=== PATIENT | male | born 1985 | race Caucasian/White ===

== ENCOUNTER 2018-11-01 03:27 | Emergency (ER) | payer BC, OTHER ==
[2018-11-01] MEDS ORDERED: Sodium Chloride 0.9% 10 ML Syringe FLUSH PRN (03:33)
[2018-11-01] MEDS ORDERED: Sodium Chloride 0.9% 2.5 ML Syringe FLUSH PRN (03:33)
[2018-11-01] MEDS ORDERED: Diphtheria,Pertussis(Acell),Tetanus Vaccine 0.5 ML Syringe IM ONE (03:34)
[2018-11-01] MEDS ORDERED: Sodium Chloride 0.9% 1,000 ML IV ONE ×2 (03:34→04:49)
[2018-11-01] MEDS ORDERED: Ondansetron 4 MG/2 ML SDV IVPUSH ONE (03:43)
[2018-11-01] MEDS ORDERED: Bacitracin Oint 1 GM U/D Packet TOP ONE (03:50)
[2018-11-01] MEDS ORDERED: Bacitracin Oint 1 GM U/D Packet ONE (03:51)
--- NOTE | 2018-11-01 03:52 | EDM.PDOC ---
ED HPI GENERAL MEDICAL PROBLEM - General Chief Complaint: Syncope Stated Complaint: CUT ON LEFT HAND PT PASSED OUT Time Seen by Provider: 11/01/18 03:35 - History of Present Illness INITIAL COMMENTS - FREE TEXT/NARRATIVE: HISTORY AND PHYSICAL: History of present illness: The patient is a healthy 33-year-old male with no significant past medical history who presents after having a syncopal event at home. The patient said that earlier today he had a normal day without any systemic issues such as fever chills upper respiratory symptoms nausea vomiting or diarrhea. He did say that he cut the palm of his left hand earlier and a friend sutured it at his home and he has had some small amount of pain at the area but no drainage or redness. The patient said he went to sleep and woke up and went to the bathroom to urinate and he was urinating and the next thing he recalls is being on the floor and having his significant other standing over him. He says he is not sure how he passed out and did not feel dizzy or lightheaded prior to the event. He says that currently he has pain to the back of his head and neck but he has no back pain no rib pain no chest pain or shortness of breath no abdominal pain and no extremity complaints as a result of the fall. He says he is a little soreness at his right elbow but the bone does not hurt him. He says that he did drink alcohol this evening but did drink a lot of fluids throughout the day. He is currently nauseated which waxes and wanes since this event and he has not vomited or had diarrhea. He's had no recent fevers or chills. The patient says that he has not had any urinary symptoms such as dysuria frequency or hematuria and currently has no flank pain or suprapubic pain. The patient came in through triage and arrived via private car. Review of systems: As per history of present illness and below otherwise all systems reviewed and negative. Past medical history: As per history of present illness and as reviewed below otherwise noncontributory. Surgical history: As per history of present illness and as reviewed below otherwise noncontributory. Social history: No reported history of drug or alcohol abuse. Family history: As per history of present illness and as reviewed below otherwise noncontributory. Physical exam: General: Well-developed well-nourished man who is nontoxic and ambulated steadily into the ED. C-collar was immediately placed after triage. Vital signs are noted by me. He speaking clearly and easily without distress HEENT: Atraumatic on palpation and visual expansion without any soft tissue injury bruises abrasions ecchymosis defects or deformities in the scalp or skull , normocephalic, pupils reactive, negative for conjunctival pallor or scleral icterus, mucous membranes moist, throat clear, neck supple, nontender, trachea midline. There is no soft tissue swelling of the facial bones and no palpable bony deformities, teeth and bite are normal, TMs are normal bilaterally without any Zaragoza sign, there is no nasal bleeding appreciated. There are no midline step-offs tenderness or defects of the cervical spine but there is diffuse paraspinal tenderness across the upper neck and the c-collar was placed Lungs: Clear to auscultation, breath sounds equal bilaterally, chest nontender. There is no soft tissue injury such as ecchymosis abrasion or soft tissue swelling Heart: S1S2, regular, negative for clicks, rubs, or JVD. Abdomen: Soft, nondistended, nontender. Negative for masses or hepatosplenomegaly. Negative for costovertebral tenderness. Pelvis: Stable nontender. Genitourinary: Deferred. Rectal: Deferred. Extremities: Atraumatic, with full range of motion of all extremities. There is no evidence of soft tissue swelling ecchymosis erythema or bony defect at the right elbow with the patient had said he had some discomfort. The legs are negative for cords or calf pain. Neurovascular unremarkable. At the left palm of the hand there is centimeter laceration seen near the thenar eminence which has [address] and there is no soft tissue swelling ecchymosis drainage or erythema appreciated. Has full range of motion of the hand and wrist. Neuro: Awake, alert, oriented. Cranial nerves II through XII unremarkable. Cerebellum unremarkable. Motor and sensory unremarkable throughout. Exam nonfocal. Back: There are no midline step-offs tenderness defects of the thoracic or lumbar spine no posterior rib or posterior pelvis tenderness and no soft tissue ecchymosis abrasion or erythema is appreciated Diagnostics: EKG orthostatic vitals CBC CMP troponin TSH alcohol level UA UDS chest x-ray CT scan of the head and C-spine Therapeutics: IV O2 monitor IV fluids Zofran cleansing of wounds, Tdap, cleansing of hand laceration with bacitracin Toradol I discussed with the patient that going forward when he has lacerations he should come to the ED to have them repaired in a sterile fashion but as this wound has been closed and looks clean and dry we would leave the sutures that were placed by his friend intact and he would need to continue to monitor for signs of infection. With the patient's orthostatic vitals he did not have any significant change in blood pressure or pulse but he was symptomatic feeling dizzy with the position change. I discussed with the patient and significant other TESTING results and have offered observation admission which she declines. He would rather go home and rest and follow-up with primary care. I will give him a prescription for Zofran and have advised him about concussion symptoms and reasons to return to the ED. I will also give him a dose of Toradol prior to leaving as he says he feels very achy Impression: Micturition syncope with closed head injury and concussion Definitive disposition and diagnosis as appropriate pending reevaluation and review of above. left hand Pain Score (Numeric/FACES): 5 - Related Data Allergies Allergy/AdvReac Type Severity Reaction Status Date / Time No Known Allergies Allergy Verified 11/01/18 03:33 Home Meds: Home Meds . [No Known Home Meds] 11/01/18 [History] Past Medical History HEENT History: Reports: None Cardiovascular History: Reports: None Respiratory History: Reports: None Gastrointestinal History: Reports: None Genitourinary History: Reports: None Other Musculoskeletal History: fracture to right arm and left clavical per pt Neurological History: Reports: None Psychiatric History: Reports: None Endocrine/Metabolic History: Reports: None Hematologic History: Reports: None Immunologic History: Reports: None Oncologic (Cancer) History: Reports: None Dermatologic History: Reports: None - Infectious Disease History Infectious Disease History: Reports: Chicken Pox Social & Family History - Family History Family Medical History: Noncontributory - Tobacco Use Smoking Status *Q: Never Smoker - Recreational Drug Use Recreational Drug Use: No ED ROS GENERAL - Review of Systems Review Of Systems: ROS reveals no pertinent complaints other than HPI. ED EXAM, GENERAL - Physical Exam Exam: See Below (see dictation) Course - Vital Signs Last Recorded V/S: Last Vital Signs Temp 36.1 C 11/01/18 03:35 Pulse 70 11/01/18 03:35 Resp 18 11/01/18 03:35 BP 113/73 11/01/18 03:35 Pulse Ox 96 11/01/18 03:35 Orthostatic Blood Pressure [ 118/78 Standing] Orthostatic Blood Pressure [ 113/73 Sitting] Orthostatic Blood Pressure [ 115/70 Supine] - Orders/Labs/Meds Orders: Active Orders 24 hr Category Date Time Status Blood Glucose Check, Bedside [RC] ONETIME Care 11/01/18 03:33 Active Cardiac Monitoring [RC] . DIRECTED Care 11/01/18 03:33 Active EKG Documentation Completion [RC] STAT Care 11/01/18 03:33 Active Orthostatic Vital Signs [RC] ASDIRECTED Care 11/01/18 03:33 Active Oxygen Therapy, ED [RC] ASDIRECTED Care 11/01/18 03:33 Active Pulse Oximetry [RC] ASDIRECTED Care 11/01/18 03:33 Active Vaccines to be Administered [RC] PER UNIT ROUTINE Care 11/01/18 03:34 Active Ketorolac [Toradol] Med 11/01/18 05:52 Once 30 mg IVPUSH ONETIME ONE Sodium Chloride 0.9% [Saline Flush] Med 11/01/18 03:33 Active 10 ml FLUSH ASDIRECTED PRN Sodium Chloride 0.9% [Saline Flush] Med 11/01/18 03:33 Active 2.5 ml FLUSH ASDIRECTED PRN Saline Lock Insert [OM.PC] Stat Oth 11/01/18 03:33 Ordered Medication Orders Sodium Chloride (Saline Flush) 10 ml FLUSH ASDIRECTED PRN PRN Reason: Keep Vein Open Sodium Chloride (Saline Flush) 2.5 ml FLUSH ASDIRECTED PRN PRN Reason: Keep Vein Open Labs: Laboratory Tests 11/01/18 11/01/18 11/01/18 Range/Units 03:45 03:45 03:48 WBC 6.96 (4.0-11.0) K/uL RBC 4.52 (4.50-5.90) M/uL Hgb 13.7 (13.0-17.0) g/dL Hct 39.6 (38.0-50.0) % MCV 87.6 (80.0-98.0) fL MCH 30.3 (27.0-32.0) pg MCHC 34.6 (31.0-37.0) g/dL RDW Std Deviation 40.1 (28.0-62.0) fl RDW Coeff of Yao 12 (11.0-15.0) % Plt Count 242 (150-400) K/uL MPV 8.70 (7.40-12.00) fL Neut % (Auto) 47.1 L (48.0-80.0) % Lymph % (Auto) 40.4 H (16.0-40.0) % Bacon % (Auto) 8.2 (0.0-15.0) % Eos % (Auto) 3.9 (0.0-7.0) % Baso % (Auto) 0.4 (0.0-1.5) % Neut # (Auto) 3.3 (1.4-5.7) K/uL Lymph # (Auto) 2.8 H (0.6-2.4) K/uL Bacon # (Auto) 0.6 (0.0-0.8) K/uL Eos # (Auto) 0.3 (0.0-0.7) K/uL Baso # (Auto) 0.0 (0.0-0.1) K/uL Nucleated RBC % 0.0 /100WBC Nucleated RBCs # 0 K/uL Sodium 144 (136-148) mmol/L Potassium 3.5 (3.5-5.1) mmol/L Chloride 106 (98-107) mmol/L Carbon Dioxide 26.0 (21.0-32.0) mmol/L BUN 13 (7.0-18.0) mg/dL Creatinine 0.9 (0.8-1.3) mg/dL Est Cr Clr Drug Dosing 139.65 mL/min Estimated GFR (MDRD) > 60.0 ml/min Glucose 112 H (74-106) mg/dL POC Glucose 104 (60-110) mg/dL Calcium 8.7 (8.5-10.1) mg/dL Total Bilirubin 0.4 (0.2-1.0) mg/dL AST 19 (15-37) IU/L ALT 23 (14-63) IU/L Alkaline Phosphatase 66 (46-116) U/L Troponin I < 0.050 (0.000-0.056) ng/mL Total Protein 7.0 (6.4-8.2) g/dL Albumin 4.1 (3.4-5.0) g/dL Globulin 2.9 (2.6-4.0) g/dL Albumin/Globulin Ratio 1.4 (0.9-1.6) TSH 3rd Generation 3.77 H (0.36-3.74) uIU/mL Urine Color Urine Appearance Urine pH (5.0-8.0) Ur Specific [place] (1.001-1.035) Urine Protein (NEGATIVE) mg/dL Urine Glucose (UA) (NEGATIVE) mg/dL Urine Ketones (NEGATIVE) mg/dL Urine Occult Blood (NEGATIVE) Urine Nitrite (NEGATIVE) Urine Bilirubin (NEGATIVE) Urine Urobilinogen (<2.0) EU/dL Ur Leukocyte Esterase (NEGATIVE) Urine Opiates Screen (NEGATIVE) Ur Oxycodone Screen (NEGATIVE) Urine Methadone Screen (NEGATIVE) Ur Barbiturates Screen (NEGATIVE) Ur Phencyclidine Scrn (NEGATIVE) Ur Amphetamine Screen (NEGATIVE) U Methamphetamines Scrn (NEGATIVE) U Benzodiazepines Scrn (NEGATIVE) U Cocaine Metab Screen (NEGATIVE) U Marijuana (THC) Screen (NEGATIVE) Ethyl Alcohol < 3.0 mg/dL 11/01/18 11/01/18 Range/Units 04:15 04:15 WBC (4.0-11.0) K/uL RBC (4.50-5.90) M/uL Hgb (13.0-17.0) g/dL Hct (38.0-50.0) % MCV (80.0-98.0) fL MCH (27.0-32.0) pg MCHC (31.0-37.0) g/dL RDW Std Deviation (28.0-62.0) fl RDW Coeff of Yao (11.0-15.0) % Plt Count (150-400) K/uL MPV (7.40-12.00) fL Neut % (Auto) (48.0-80.0) % Lymph % (Auto) (16.0-40.0) % Bacon % (Auto) (0.0-15.0) % Eos % (Auto) (0.0-7.0) % Baso % (Auto) (0.0-1.5) % Neut # (Auto) (1.4-5.7) K/uL Lymph # (Auto) (0.6-2.4) K/uL Bacon # (Auto) (0.0-0.8) K/uL Eos # (Auto) (0.0-0.7) K/uL Baso # (Auto) (0.0-0.1) K/uL Nucleated RBC % /100WBC Nucleated RBCs # K/uL Sodium (136-148) mmol/L Potassium (3.5-5.1) mmol/L Chloride (98-107) mmol/L Carbon Dioxide (21.0-32.0) mmol/L BUN (7.0-18.0) mg/dL Creatinine (0.8-1.3) mg/dL Est Cr Clr Drug Dosing mL/min Estimated GFR (MDRD) ml/min Glucose (74-106) mg/dL POC Glucose (60-110) mg/dL Calcium (8.5-10.1) mg/dL Total Bilirubin (0.2-1.0) mg/dL AST (15-37) IU/L ALT (14-63) IU/L Alkaline Phosphatase (46-116) U/L Troponin I (0.000-0.056) ng/mL Total Protein (6.4-8.2) g/dL Albumin (3.4-5.0) g/dL Globulin (2.6-4.0) g/dL Albumin/Globulin Ratio (0.9-1.6) TSH 3rd Generation (0.36-3.74) uIU/mL Urine Color YELLOW Urine Appearance CLEAR Urine pH 7.0 (5.0-8.0) Ur Specific [place] 1.015 (1.001-1.035) Urine Protein NEGATIVE (NEGATIVE) mg/dL Urine Glucose (UA) NEGATIVE (NEGATIVE) mg/dL Urine Ketones TRACE H (NEGATIVE) mg/dL Urine Occult Blood NEGATIVE (NEGATIVE) Urine Nitrite NEGATIVE (NEGATIVE) Urine Bilirubin NEGATIVE (NEGATIVE) Urine Urobilinogen 1.0 (<2.0) EU/dL Ur Leukocyte Esterase NEGATIVE (NEGATIVE) Urine Opiates Screen NEGATIVE (NEGATIVE) Ur Oxycodone Screen NEGATIVE (NEGATIVE) Urine Methadone Screen NEGATIVE (NEGATIVE) Ur Barbiturates Screen NEGATIVE (NEGATIVE) Ur Phencyclidine Scrn NEGATIVE (NEGATIVE) Ur Amphetamine Screen NEGATIVE (NEGATIVE) U Methamphetamines Scrn NEGATIVE (NEGATIVE) U Benzodiazepines Scrn NEGATIVE (NEGATIVE) U Cocaine Metab Screen NEGATIVE (NEGATIVE) U Marijuana (THC) Screen NEGATIVE (NEGATIVE) Ethyl Alcohol mg/dL Meds: Medications Generic Name Dose Route Start Last Admin Trade Name Freq PRN Reason Stop Dose Admin Sodium Chloride 10 ml 11/01/18 03:33 Saline Flush FLUSH ASDIRECTED PRN Keep Vein Open Sodium Chloride 2.5 ml 11/01/18 03:33 Saline Flush FLUSH ASDIRECTED PRN Keep Vein Open Discontinued Medications Generic Name Dose Route Start Last Admin Trade Name Freq PRN Reason Stop Dose Admin Bacitracin 1 dose 11/01/18 03:50 11/01/18 03:54 Bacitracin Oint 1 Gm TOP 11/01/18 03:51 1 dose ONETIME ONE Administration Bacitracin Confirm 11/01/18 03:51 11/01/18 03:54 Bacitracin Oint 1 Gm Administered 11/01/18 03:52 Not Given Dose 1 dose .ROUTE .STK-MED ONE Diphtheria/Tetanus/Acell Pertussis 0.5 ml 11/01/18 03:34 11/01/18 03:51 Adacel IM 11/01/18 03:35 0.5 ml .ONCE ONE Administration Sodium Chloride 1,000 mls @ 999 mls/hr 11/01/18 03:34 11/01/18 03:49 Normal Saline IV 11/01/18 04:34 999 mls/hr STAT ONE Administration Sodium Chloride 1,000 mls @ 999 mls/hr 11/01/18 04:49 Normal Saline IV 11/01/18 05:49 STAT ONE Ondansetron HCl 4 mg 11/01/18 03:43 11/01/18 03:49 Zofran IVPUSH 11/01/18 03:44 4 mg ONETIME ONE Administration Departure - Departure Time of Disposition: 05:54 Disposition: Home, Self-Care 01 Condition: Good Clinical Impression: Concussion Qualifiers: Encounter type: initial encounter Loss of consciousness presence/duration: with LOC of unspecified duration Qualified Code(s): S06.0X9A - Concussion with loss of consciousness of unspecified duration, initial encounter Syncope Qualifiers: Syncope type: unspecified Qualified Code(s): R55 - Syncope and collapse - Discharge Information Referrals: PCP,None [Primary Care Provider] - Forms: ED Department Discharge Additional Instructions: The following information is given to patients seen in the emergency department who are being discharged to home. This information is to outline your options for follow-up care. We provide all patients seen in our emergency department with a follow-up referral. The need for follow-up, as well as the timing and circumstances, are variable depending upon the specifics of your emergency department visit. If you don't have a primary care physician on staff, we will provide you with a referral. We always advise you to contact your personal physician following an emergency department visit to inform them of the circumstance of the visit and for follow-up with them and/or the need for any referrals to a consulting specialist. The emergency department will also refer you to a specialist when appropriate. This referral assures that you have the opportunity for followup care with a specialist. All of these measure are taken in an effort to provide you with optimal care, which includes your followup. Under all circumstances we always encourage you to contact your private physician who remains a resource for coordinating your care. When calling for followup care, please make the office aware that this follow-up is from your recent emergency room visit. If for any reason you are refused follow-up, please contact the [facility] emergency department at and ask to speak to the emergency department charge nurse. [facility] Primary care- Internal Medicine and Family [address] [address] Push hydration and rest and do all movements and activities very slowly so as to avoid getting dizzy or lightheaded. Expect aches and pains over the next several days to one week and expect signs and symptoms of a concussion as we discussed anywhere from 1 day to 2 weeks. Please call and follow-up with one of our providers in the clinic or your provider for reevaluation and further care of the concussion symptoms. Use Zofran you have been given from [facility] for nausea and vomiting and use [id number] Tylenol and ibuprofen for pain management. Apply ice to all areas of discomfort and then switch to heat in the next 24 hours. Return to ER as needed and as discussed. Although your laceration was not repaired here keep it clean and dry with mild soap and water pat dry and apply bacitracin or Neosporin. The sutures should be removed in 7 days. - My Orders Last 24 Hours: My Active Orders 11/01/18 03:33 Blood Glucose Check, Bedside [RC] ONETIME Cardiac Monitoring [RC] . DIRECTED EKG Documentation Completion [RC] STAT Orthostatic Vital Signs [RC] ASDIRECTED Oxygen Therapy, ED [RC] ASDIRECTED Pulse Oximetry [RC] ASDIRECTED Sodium Chloride 0.9% [Saline Flush] 10 ml FLUSH ASDIRECTED PRN Sodium Chloride 0.9% [Saline Flush] 2.5 ml FLUSH ASDIRECTED PRN Saline Lock Insert [OM.PC] Stat 11/01/18 03:34 Vaccines to be Administered [RC] PER UNIT ROUTINE 11/01/18 05:52 Ketorolac [Toradol] 30 mg IVPUSH ONETIME ONE - Assessment/Plan Last 24 Hours: My Active Orders 11/01/18 03:33 Blood Glucose Check, Bedside [RC] ONETIME Cardiac Monitoring [RC] . DIRECTED EKG Documentation Completion [RC] STAT Orthostatic Vital Signs [RC] ASDIRECTED Oxygen Therapy, ED [RC] ASDIRECTED Pulse Oximetry [RC] ASDIRECTED Sodium Chloride 0.9% [Saline Flush] 10 ml FLUSH ASDIRECTED PRN Sodium Chloride 0.9% [Saline Flush] 2.5 ml FLUSH ASDIRECTED PRN Saline Lock Insert [OM.PC] Stat 11/01/18 03:34 Vaccines to be Administered [RC] PER UNIT ROUTINE 11/01/18 05:52 Ketorolac [Toradol] 30 mg IVPUSH ONETIME ONE
[2018-11-01 04:22] LABS: BLOOD UREA NITROGEN,BUN 13 mg/dL (7.0-18.0); CHLORIDE,CL 106 mmol/L (98-107); GLUCOSE RANDOM 112 mg/dL (74-106); POTASSIUM,K 3.5 mmol/L (3.5-5.1); SODIUM,NA 144 mmol/L (136-148)
--- NOTE | 2018-11-01 05:43 | CR ---
INDICATION: syncope, fall CHEST, ONE VIEW AP radiographs of the chest were performed. Comparison: No previous studies are currently available for comparison. The lungs appear clear and no pleural effusions are identified. The cardiomediastinal silhouette and pulmonary vasculature appear normal, as do the visualized bones. IMPRESSION: No acute intrathoracic abnormality identified. KAYLEEN PARK MD [employer] Dictated by: González Park MD @ 11/01/2018 05:42:11 (Electronically Signed)
--- NOTE | 2018-11-01 05:47 | CT ---
INDICATION: syncope, fall CT CERVICAL SPINE WITHOUT CONTRAST TECHNIQUE: Multidetector axial CT imaging was performed through the cervical spine, without contrast. Sagittal and coronal reconstructions were generated. FINDINGS: No acute fractures are identified. Osseous alignment is unremarkable and no subluxation is seen. Prevertebral soft tissues appear normal. Included portions of the airway and lung apices are within normal limits. IMPRESSION: No fracture, subluxation, or other acute finding identified in the cervical spine. KAYLEEN PARK MD [facility] Dictated by: González Park MD @ 11/01/2018 05:46:16 (Electronically Signed)
--- NOTE | 2018-11-01 05:47 | CT ---
INDICATION: syncope, fall CT HEAD WITHOUT CONTRAST TECHNIQUE: Multiple axial CT images were performed through the head without intravenous contrast administration. COMPARISON: No previous studies are currently available for comparison. FINDINGS: No acute intracranial hemorrhage is identified. No extra-axial collections are evident and there is no mass effect or midline shift. Ventricles are normal in size and configuration. Brain parenchyma appears normal with unremarkable hernandez-white differentiation. Osseous structures are within normal limits and no fractures are seen. Included portions of the paranasal sinuses and mastoid air cells are normally aerated aside from minimal ethmoid sinus mucosal thickening. IMPRESSION: Negative non-contrast head CT. KAYLEEN PARK MD [facility] Dictated by: González Park MD @ 11/01/2018 05:45:37 (Electronically Signed)
[2018-11-01] MEDS ORDERED: Ketorolac 30 MG/ML SDV IVPUSH ONE (05:52)
== END 2018-11-01 06:15 | disposition home or self-care (01) ==
LOC: MW.ED 03:27
DX: S06.0X9A Concussion with loss of consciousness of unspecified duration, initial encounter (principal); Z23 Encounter for immunization; W18.30XA Fall on same level, unspecified, initial encounter
CPT/HCPCS: 36415; 70450; 71045; 72125; 80053; 80305; 80320; 81003; 82962; 84443; 84484; 85025; 90471; 90715; 93005; 96361; 96374; 96375; 99284; J1885; J2405; J7040; G0480